=== PATIENT | female | born 1965 | race Caucasian/White ===

== ENCOUNTER 2020-03-18 07:38 | Outpatient (CLI) | payer OTHER, SELFPAY ==
--- NOTE | 2020-03-18 10:00 | NEURO_ITS ---
Patient Number: [id number] Impression: # Complains of upper extremity weakness and right elbow pain. # Right ulnar neuropathy around the elbow. # No Carpal Tunnel Syndrome. # Normal needle/EMG exam. # Clinical correlation recommended. Nerve Conduction Studies Anti Sensory Summary Table Stim Site NR Peak (ms) P-T Amp (?V) Site1 Site2 Delta-P (ms) Dist (cm) Wilberto (m/s) Left Median Anti Sensory (2-3nd Digit) Wrist 2.9 75.8 Wrist 2-3nd Digit 2.9 14.0 48 Wrist 2.7 95.7 Wrist 2-3nd Digit 2.9 14.0 48 Right Median Anti Sensory (2-3nd Digit) Wrist 2.5 77.7 Wrist 2-3nd Digit 2.5 14.0 56 Wrist 2.5 92.1 Wrist 2-3nd Digit 2.5 14.0 56 Left Radial Anti Sensory (Base 1st Digit) Wrist 1.9 29.2 Wrist Base 1st Digit 1.9 0.0 Right Radial Anti Sensory (Base 1st Digit) Wrist 2.5 33.2 Wrist Base 1st Digit 2.5 0.0 Left Ulnar Anti Sensory (5th Digit) Wrist 2.5 95.8 Wrist 5th Digit 2.5 14.0 56 Right Ulnar Anti Sensory (5th Digit) Wrist 2.3 67.0 Wrist 5th Digit 2.3 14.0 61 Motor Summary Table Stim Site NR Onset (ms) O-P Amp (mV) Site1 Site2 Delta-0 (ms) Dist (cm) Wilberto (m/s) Left Median Motor (Abd Poll Brev) Wrist 2.8 6.7 Elbow Wrist 4.9 28.0 57 Elbow 7.7 5.7 Right Median Motor (Abd Poll Brev) Wrist 3.2 4.4 Elbow Wrist 4.4 26.0 59 Elbow 7.6 2.4 Left Ulnar Motor (Abd Dig Minimi) Wrist 2.5 7.7 A Elbow Wrist 4.8 28.0 58 A Elbow 7.3 7.0 Right Ulnar Motor (Abd Dig Minimi) Wrist 2.3 6.3 A Elbow Wrist 5.0 26.0 52 A Elbow 7.3 4.7 B Elbow Wrist 3.6 20.0 56 B Elbow 5.9 4.0 F Wave Studies NR F-Lat (ms) L-R F-Lat (ms) Left Median (Mrkrs) (Abd Poll Brev) 26.69 0.84 Right Median (Mrkrs) (Abd Poll Brev) 25.85 0.84 Left Ulnar (Mrkrs) (Abd Dig Min) 25.00 0.94 Right Ulnar (Mrkrs) (Abd Dig Min) 25.94 0.94 EMG Side Muscle Nerve Root Ins Act Fibs Amp Dur Recrt Comment Right 1stDorInt Ulnar C8-T1 Nml Nml Nml Nml Nml Right Ext Indicis Radial (Post Int) C7-8 Nml Nml Nml Nml Nml Right Ext Digitorum Radial (Post Int) C7-8 Nml Nml Nml Nml Nml Right BrachioRad Radial C5-6 Nml Nml Nml Nml Nml Right PronatorTeres Median C6-7 Nml Nml Nml Nml Nml Right Abd Poll Brev Median C8-T1 Nml Nml Nml Nml Nml Left 1stDorInt Ulnar C8-T1 Nml Nml Nml Nml Nml Left Ext Indicis Radial (Post Int) C7-8 Nml Nml Nml Nml Nml Left Ext Digitorum Radial (Post Int) C7-8 Nml Nml Nml Nml Nml Left BrachioRad Radial C5-6 Nml Nml Nml Nml Nml Left PronatorTeres Median C6-7 Nml Nml Nml Nml Nml Left Abd Poll Brev Median C8-T1 Nml Nml Nml Nml Nml Right Biceps Musculocut C5-6 Nml Nml Nml Nml Nml Right Triceps Radial C6-7-8 Nml Nml Nml Nml Nml Right Deltoid Axillary C5-6 Nml Nml Nml Nml Nml Left Biceps Musculocut C5-6 Nml Nml Nml Nml Nml Left Triceps Radial C6-7-8 Nml Nml Nml Nml Nml Left Deltoid Axillary C5-6 Nml Nml Nml Nml Nml MTDD
== END 2020-03-18 07:39 | disposition home or self-care (01) ==
PROVIDERS: PCP Internal Medicine; Visit Provider Psychiatry & Neurology Neurology
DX: R53.1 Weakness (principal); G56.01 Carpal tunnel syndrome, right upper limb
CPT/HCPCS: 95886; 95911

== ENCOUNTER 2020-04-30 15:19 | Outpatient (CLI) | payer OTHER, SELFPAY ==
[2020-04-30 16:26] LABS: Urine Cotinine POSITIVE
== END 2020-04-30 15:20 | disposition home or self-care (01) ==
LOC: ANHLAB 15:21
PROVIDERS: PCP Internal Medicine; Visit Provider Internal Medicine
DX: R68.89 Other general symptoms and signs (principal); R79.89 Other specified abnormal findings of blood chemistry; E78.1 Pure hyperglyceridemia; R94.6 Abnormal results of thyroid function studies
CPT/HCPCS: 80307

== ENCOUNTER 2020-05-06 09:54 | Outpatient (CLI) | payer OTHER, SELFPAY ==
[2020-05-06 10:47] LABS: Mean Corpuscular HGB Conc 34.9 g/dl (32-36); Mean Corpuscular Hemoglobin 34.4 pg (26-34); Mean Corpuscular Volume 98.6 fl (80-100); Mean Platelet Volume 9.4 fl (7.4-10.4); Platelet Count Result 237 k/mm3 (150-375); Red Blood Count 4.36 M/mm3 (4.2-5.4); Red Cell Distribution Width 11.9 % (11.5-14.5); White Blood Count 8.7 K/mm3 (4.5-10.0)
[2020-05-06 11:00] LABS: Alanine Aminotransferase 9 U/L (4-35); Albumin Level 4.2 g/dL (3.5-5.1); Alkaline Phosphatase 72 U/L (38-126); Anion Gap 6 mmol/L (8-16); Aspartate Amino Transferase 17 U/L (14-36); Bilirubin,Total 0.3 mg/dL (0.2-1.3); Blood Urea Nitrogen 13 mg/dL (7-17); Calcium 9.6 mg/dL (8.4-10.2); Carbon Dioxide 32 mmol/L (22-30); Chloride 101 mmol/L (98-107); Estimated Glomerular Filt Rate 47; Glucose 96 mg/dL (65-105); Potassium 4.1 mmol/L (3.4-5.0); Sodium 139 mmol/L (137-145)
[2020-05-06 11:12] LABS: LDL Cholesterol Direct 95 mg/dL
== END 2020-05-06 09:55 | disposition home or self-care (01) ==
LOC: ANHLAB 09:56
PROVIDERS: PCP Internal Medicine; Visit Provider Internal Medicine
DX: R68.89 Other general symptoms and signs (principal); R79.89 Other specified abnormal findings of blood chemistry; E78.1 Pure hyperglyceridemia; R94.6 Abnormal results of thyroid function studies
CPT/HCPCS: 36415; 80053; 83721; 84443; 85027

== ENCOUNTER 2021-03-23 08:17 | Outpatient (CLI) | payer OTHER, SELFPAY ==
--- NOTE | ~2021-03-23 | US_ITS ---
US right upper quadrant INDICATION: Right upper quadrant pain and bloating PROCEDURE: Realtime right upper abdominal ultrasound. COMPARISON: No prior studies for comparison. FINDINGS: The pancreas is normal without focal mass or pancreatic ductal dilation. Liver echotexture is normal without focal mass or intrahepatic biliary dilatation. There is normal directional flow i n the portal vein. There are gallstones. No gallbladder wall thickening or pericholecystic fluid. Common bile duct jackeline ures 4 mm. No sonographic Alejo's sign. IMPRESSION: 1: Cholelithiasis. Reviewed, dictated and finalized at location A. IMPRESSION: 1: Cholelithiasis.
== END 2021-03-23 08:18 | disposition home or self-care (01) ==
LOC: ANHIMG 08:18
PROVIDERS: PCP Internal Medicine; Visit Provider Internal Medicine
DX: K80.20 Calculus of gallbladder without cholecystitis without obstruction (principal)
CPT/HCPCS: 76705

== ENCOUNTER 2021-06-20 08:38 | Outpatient (CLI) | payer OTHER, SELFPAY ==
--- NOTE | ~2021-06-20 | DEXA_ITS ---
Bone Density Report Name: Radha Del Rosario Age: 56 Sex: Female Ethnicity: White Date of : 1965 Indication: postmenopausal; Referring Provider: JORGE LUIS, JERED Study: Bone densitometry was performed. Exam Date: June 20, 2021 Accession number: [id number] Bone Density: Region BMD T-score Z-score Classification AP Spine (L1-L4) 1.102 0.5 1.7 Normal Femoral Neck (Left) 0.773 -0.7 0.5 Normal Total Hip (Left) 0.887 -0.4 0.3 Normal Total Hip Bilateral Avg 0.903 -0.3 0.5 Normal Femoral Neck (Right) 0.820 -0.3 0.9 Normal Total Hip (Right) 0.917 -0.2 0.6 Normal World Health Organization criteria for BMD impression classify patients as: Normal (T-score at or above -1.0), Osteopenia (T-score between -1.0 and -2.5), or Osteoporosis (T-score at or below -2.5). 10-year Fracture Risk: FRAX not reported because: All T-scores for Spine Total, Hip Total, Femoral Neck at or above -1.0 Clinical Information Provided by Patient: Patient maximum height was 61.5 Menopause Age: 52 No regular weight bearing exercise Drinks caffeinated beverages Onset of menses at age 15 Number of children 3 Impression: The patient has normal bone mass. Discussion: BONE DENSITY IS ABOVE THE MINIMUM DESIRABLE LEVEL AT ALL SKELETAL SITES TESTED. This patient?s bone mineral density is above the minimum desirable level (T-score -1.0 or better) at all sites measured. The patient should follow a healthful lifestyle (good nutrition with adequate calcium and vitamin D, and appropriate weight-bearing exercise). Follow-Up: Consider repeating this study in 5 years or sooner if there is some new clinical indication. Reported by: [facility] on 06/20/2021 9:19:00 AM. Reviewed, dictated and finalized at location AJosef WESTBROOK
--- NOTE | ~2021-06-20 | MM_ITS ---
EXAMINATION: MM screening [facility] BI w velma HISTORY: Screening mammogram TECHNIQUE: Craniocaudal and mediolateral oblique 3-D tomosynthesis images were obtained and synthetic 2-D images were generated. CAD analysis was submitted and interpreted. COMPARISON: 09/14/2016, 06/07/2015 BREAST PARENCHYMAL COMPOSITION: The breasts are heterogeneously dense, which may obscure small masses . FINDINGS: A cyst in the upper outer quadrant of the right breast has decreased in size. There is no e vidence of suspicious mass, calcification, or architectural distortion to suggest malignancy in eithe r breast. There has been no suspicious interval change. IMPRESSION: 1. No mammographic evidence of malignancy. 2. Recommend routine screening mammography in one year. BI-RADS Category 2: Benign finding(s). Reviewed, dictated and finalized at location A. SHER APPRENTICE
== END 2021-06-20 08:39 | disposition home or self-care (01) ==
LOC: ANHIMG 08:44
PROVIDERS: PCP Internal Medicine; Visit Provider Nurse Practitioner
DX: Z12.31 Encounter for screening mammogram for malignant neoplasm of breast (principal); M85.88 Other specified disorders of bone density and structure, other site
CPT/HCPCS: 77063; 77067; 77080

== ENCOUNTER 2021-12-19 10:12 | Outpatient (CLI) | payer OTHER, SELFPAY ==
--- NOTE | ~2021-12-19 | NM_ITS ---
EXAMINATION: NM hepatobiliary wo pharm DATE: 12/19/2021 13:18 INDICATION: Gallstones. COMPARISON: Ultrasound 03/23/2021 TECHNIQUE: 4 mCi Tc-99m mebrofenin (Choletec) was administered intravenously. Scintigraphic images o f the abdomen were obtained for one hour. Then, the patient drank 8 oz Ensure, and imaging was contin ued for 60 minutes. FINDINGS: There is normal clearance of radiotracer from the blood pool. There is homogeneous tracer u ptake by the liver. Activity progresses to the bowel and gallbladder. Gallbladder ejection fraction (GBEF) was 79%. Note that with this technique, normal GBEF >= 33%. IMPRESSION: 1. Normal hepatobiliary scintigraphy. Reviewed, dictated and finalized at location B.
== END 2021-12-19 10:13 | disposition home or self-care (01) ==
PROVIDERS: PCP Internal Medicine; Visit Provider Internal Medicine
DX: K56.3 Gallstone ileus (principal); K80.20 Calculus of gallbladder without cholecystitis without obstruction; R10.9 Unspecified abdominal pain
CPT/HCPCS: 78226; A9537

== ENCOUNTER 2022-04-13 15:09 | Outpatient (CLI) | payer OTHER, SELFPAY ==
[2022-04-13 15:33] LABS: Basophils Absolute Auto 0.1 K/mm3 (0.0-0.1); Basophils Percent Auto 0.7 % (0.2-1.2); Eosinophils Absolute Auto 0.2 K/mm3 (0-0.3); Eosinophils Percent Auto 2.4 % (0-4.4); Hematocrit 41.8 % (37.0-47.0); Hemoglobin 14.6 g/dL (12.0-15.0); Immature Granulocyte Absolute 0.03 K/mm3 (0.00-0.031); Immature Granulocyte Percent A 0.3 % (0-0.5); Lymphocytes Absolute Auto 3.11 K/mm3 (0.9-3.2); Lymphocytes Percent Auto 30.5 % (18.3-44.2); Mean Corpuscular HGB Conc 34.9 g/dl (32-36); Mean Corpuscular Hemoglobin 33.7 pg (26-34); Mean Corpuscular Volume 96.5 fl (80-100); Mean Platelet Volume 9.8 fl (7.4-10.4); Monocytes Absolute Auto 0.7 K/mm3 (0.1-0.6); Monocytes Percent Auto 7.1 % (2.6-8.5); Platelet Count Result 251 k/mm3 (150-375); Red Blood Count 4.33 M/mm3 (4.2-5.4); White Blood Count 10.2 K/mm3 (4.5-10.0)
[2022-04-13 18:47] LABS: Alanine Aminotransferase 14 U/L (6-35); Albumin Level 4.7 g/dL (3.5-5.1); Alkaline Phosphatase 85 U/L (38-126); Anion Gap 11 mmol/L (8-16); Aspartate Amino Transferase 22 U/L (14-36); Bilirubin,Total 0.3 mg/dL (0.2-1.3); Blood Urea Nitrogen 12 mg/dL (7-17); Calcium 10.2 mg/dL (8.4-10.2); Carbon Dioxide 26 mmol/L (22-30); Chloride 103 mmol/L (98-107); Cholesterol 173 mg/dL (0-200); Estimated Glomerular Filt Rate 51; Glucose 99 mg/dL (65-110); HDL Direct 51 mg/dL; LDL Cholesterol Direct 79 mg/dL; Potassium 4.2 mmol/L (3.4-5.0); Sodium 140 mmol/L (137-145); Triglycerides 114 mg/dL (<150)
[2022-04-13 20:09] LABS: Folic Acid 3.9 ng/mL (2.76->20)
[2022-04-20 10:49] LABS: Gliadin AB, IgG <1.0; TTG IGA AB <1.0
== END 2022-04-13 15:10 | disposition home or self-care (01) ==
LOC: ANHLAB 15:12
PROVIDERS: PCP Internal Medicine; Visit Provider Internal Medicine
DX: R14.0 Abdominal distension (gaseous) (principal); Z13.228 Encounter for screening for other metabolic disorders; K80.20 Calculus of gallbladder without cholecystitis without obstruction; Z86.39 Personal history of other endocrine, nutritional and metabolic disease
CPT/HCPCS: 36415; 80053; 80061; 82607; 82746; 83516; 84443; 85025; 86255

== ENCOUNTER 2022-06-14 10:20 | Outpatient (CLI) | payer OTHER, SELFPAY ==
--- NOTE | ~2022-06-14 | CT_ITS ---
EXAMINATION: CT lung screening DATE: 06/14/2022 10:35 INDICATION: Personal history of nicotine dependence, prior smoker with 30 pack year history TECHNIQUE: Computed tomography (CT) of the chest was performed without intravenous contrast. The dose -length product (DLP) was 74.17 mGy-cm. Automated exposure control and iterative reconstruction techn [employer] were employed. COMPARISON: 10/30/2007 FINDINGS: There is severe emphysema of the upper lobes. There is scarring in the right lung apex. The re are stable, chronic nodules measuring 5 mm and 2 mm in the left lower lobe. No pleural effusion or pneumothorax. No pathologically enlarged thoracic lymph nodes are identified. The heart size is norm al. Calcified right hilar lymph nodes are consistent with old granulomatous disease. There is a 2.4 c m cyst of the left hepatic lobe. Punctate calcifications in an otherwise normal spleen likely represe nt healed granulomatous disease. There is mild thoracic spondylosis. IMPRESSION: 1. Lung-RADS category 2: Benign appearance or behavior. Continue annual screening with noncontrast lo w-dose chest CT in 12 months. Reviewed, dictated and finalized at location B. RICT ASSOCIATE JUDGE IMPRESSION: 1. Lung-RADS category 2: Benign appearance or behavior. Continue annual screeni ng with noncontrast low-dose chest CT in 12 months.
== END 2022-06-14 10:21 | disposition home or self-care (01) ==
PROVIDERS: PCP Internal Medicine; Visit Provider Internal Medicine
DX: Z12.2 Encounter for screening for malignant neoplasm of respiratory organs (principal); Z87.891 Personal history of nicotine dependence
CPT/HCPCS: 71271

== ENCOUNTER 2022-09-05 13:19 | Outpatient (CLI) | payer OTHER, SELFPAY ==
--- NOTE | ~2022-09-05 | MMUS_ITS ---
EXAMINATION: MM diagnostic [facility] BI w velma, US breast LT limited HISTORY: Probable left breast lump TECHNIQUE: Additional 3-D tomosynthesis images of the breasts were performed and synthetic 2-D images were generated. CAD analysis was submitted and interpreted. High resolution Limited left breast ultr asound was performed. COMPARISON: Comparison to multiple prior studies sequentially, with oldest reviewed study dated 09/2014. BREAST PARENCHYMAL COMPOSITION: The breasts are heterogeneously dense, which may obscure small masses FINDINGS: MAMMOGRAPHIC FINDINGS: There are no suspicious masses, calcifications or architectural distortion in either breast to sugges t malignancy. ULTRASOUND: Limited left breast ultrasound: Normal heterogeneous echotexture without focal solid or cystic mass. IMPRESSION: 1. No evidence for malignancy in either breast. 2. Routine yearly screening mammogram and regular clinical breast examination are recommended. BI-RADS Category 1: Negative Reviewed, dictated and finalized at location A. YLENE CYLINDER PACKING MIXER IMPRESSION: 1. No evidence for malignancy in either breast. 2. Routine yearly screening mammogram and regular clinical breast examination a re recommended. BI-RADS Category 1: Negative
== END 2022-09-05 13:20 | disposition home or self-care (01) ==
PROVIDERS: PCP Internal Medicine; Visit Provider Obstetrics & Gynecology Gynecology
DX: N63.20 Unspecified lump in the left breast, unspecified quadrant (principal)
CPT/HCPCS: 76642; 77062; 77066; G0279

== ENCOUNTER 2022-09-22 15:00 | Outpatient (CLI) | payer OTHER, SELFPAY ==
[2022-09-24 23:40] LABS: PCP NEGATIVE ng/mL (<25)
[2022-09-26 11:28] LABS: Amphetamines Negative; Barbiturates Negative; Benzodiazepines Positive; Cocaine Metabolites Negative; Marijuana Metabolites Positive
== END 2022-09-22 15:01 | disposition home or self-care (01) ==
LOC: ANHLAB 15:02
PROVIDERS: PCP Internal Medicine; Visit Provider Nurse Practitioner
DX: F41.9 Anxiety disorder, unspecified (principal); Z79.899 Other long term (current) drug therapy
CPT/HCPCS: 80307

== ENCOUNTER 2023-08-08 07:35 | Outpatient (CLI) | payer OTHER, SELFPAY ==
--- NOTE | ~2023-08-08 | CT_ITS ---
EXAMINATION:CT lung screening DATE: 08/08/2023 14:56 INDICATION: Encounter for screening for malignant neoplasm of respiratory organs. Smoker who quit 5 y ears ago with 30 pack year history. TECHNIQUE: Computed tomography (CT) of the chest was performed without intravenous contrast. Automate d exposure control and iterative reconstruction technique were employed. The dose-length product (DLP ) was 77.73 mGy-cm. COMPARISON: Chest CT 06/14/2022 FINDINGS: There is severe emphysema. There is mild scarring at the lung apices. There is a stable 6 m m nodule in left lower lobe. Calcified right lung nodules and calcified right hilar lymph nodes are c onsistent with old granulomatous disease. There are two 3 mm nodules in left upper lobe. There is a c luster of tree-in-bud opacities in left lower lobe, likely infection. No pleural effusion. The heart size is normal. No pericardial effusion. Calcifications in the spleen are consistent with old granulo matous disease. There is a 2.7 cm cyst in the liver. There is mild thoracic spondylosis. IMPRESSION: 1. Lung-RADS category 2: Benign appearance or behavior. Continue annual screening with noncontrast lo w-dose chest CT in 12 months. Reviewed, dictated and finalized at location E. ISHER IMPRESSION: 1. Lung-RADS category 2: Benign appearance or behavior. Continue annual screeni ng with noncontrast low-dose chest CT in 12 months.
[2023-08-08 07:53] LABS: Basophils Absolute Auto 0.1 K/mm3 (0.0-0.1); Basophils Percent Auto 0.8 % (0.2-1.2); Eosinophils Absolute Auto 0.3 K/mm3 (0-0.3); Eosinophils Percent Auto 2.4 % (0-4.4); Hematocrit 43.8 % (37.0-47.0); Immature Granulocyte Absolute 0.04 K/mm3 (0.00-0.031); Immature Granulocyte Percent A 0.4 % (0-0.5); Lymphocytes Absolute Auto 2.76 K/mm3 (0.9-3.2); Lymphocytes Percent Auto 24.5 % (18.3-44.2); Mean Corpuscular HGB Conc 34.2 g/dl (32-36); Mean Corpuscular Hemoglobin 33.9 pg (26-34); Mean Corpuscular Volume 98.9 fl (80-100); Mean Platelet Volume 9.5 fl (7.4-10.4); Monocytes Absolute Auto 0.7 K/mm3 (0.1-0.6); Neutrophils Absolute Auto 7.4 K/mm3 (1.3-6.7); Neutrophils Percent Auto 65.9 % (45.5-73.1); Platelet Count Result 252 k/mm3 (150-375); Red Blood Count 4.43 M/mm3 (4.2-5.4); Red Cell Distribution Width 11.9 % (11.5-14.5); White Blood Count 11.3 K/mm3 (4.5-10.0)
[2023-08-08 08:05] LABS: Alanine Aminotransferase 20 U/L (6-35); Albumin Level 4.2 g/dL (3.5-5.1); Alkaline Phosphatase 90 U/L (38-126); Anion Gap 10 mmol/L (8-16); Aspartate Amino Transferase 22 U/L (14-36); Bilirubin,Total 0.5 mg/dL (0.2-1.3); Blood Urea Nitrogen 17 mg/dL (7-17); Calcium 9.7 mg/dL (8.4-10.2); Carbon Dioxide 27 mmol/L (22-30); Chloride 103 mmol/L (98-107); Cholesterol 205 mg/dL (0-200); Estimated Glomerular Filt Rate > 60; Glucose 119 mg/dL (65-110); HDL Direct 47 mg/dL; Sodium 140 mmol/L (137-145); Triglycerides 206 mg/dL (<150)
[2023-08-08 08:16] LABS: LDL Cholesterol Direct 103 mg/dL
[2023-08-08 09:10] LABS: Folic Acid 12.7 ng/mL (2.76->20)
[2023-08-08 09:36] LABS: Vitamin D 25 Hydroxy 39.5 ng/mL
[2023-08-10 08:56] LABS: Hemoglobin A1C 5.4 % (<5.7)
== END 2023-08-08 07:36 | disposition home or self-care (01) ==
PROVIDERS: PCP Internal Medicine; Visit Provider Nurse Practitioner
DX: Z12.2 Encounter for screening for malignant neoplasm of respiratory organs (principal); Z86.39 Personal history of other endocrine, nutritional and metabolic disease; E55.9 Vitamin D deficiency, unspecified; Z13.220 Encounter for screening for lipoid disorders; Z13.29 Encounter for screening for other suspected endocrine disorder; R73.9 Hyperglycemia, unspecified; Z87.891 Personal history of nicotine dependence
CPT/HCPCS: 36415; 71271; 80053; 80061; 82306; 82607; 82746; 83036; 85025

== ENCOUNTER 2023-08-21 11:12 | Outpatient (CLI) | payer OTHER, SELFPAY ==
--- NOTE | ~2023-08-21 | XR_ITS ---
XR chest 2V DATE: 08/21/2023 11:24 INDICATION: Shortness of breath for 3 weeks TECHNIQUE: PA and lateral views COMPARISON: 09/04/2023 CT lung screening FINDINGS: Bilateral hyperinflation and relative flattening the diaphragm, as well as evidence of some bullous change in the upper lung zones, consistent with COPD. No pulmonary infiltrate or consolidati on, pleural effusion or pulmonary vascular congestion or pneumothorax is detected. Normal heart size. No hilar or mediastinal enlargement. Degenerative changes of the lower cervical spine and to a lesser extent thoracic spine. IMPRESSION: COPD No active pulmonary disease is detected Reviewed, dictated and finalized at location L. TED STRING INSTRUMENT REPAIRER
== END 2023-08-21 11:13 | disposition home or self-care (01) ==
LOC: ANHIMG 11:15
PROVIDERS: PCP Internal Medicine; Visit Provider Nurse Practitioner
DX: R06.02 Shortness of breath (principal)
CPT/HCPCS: 71046

== ENCOUNTER 2023-09-28 14:35 | Outpatient (CLI) | payer OTHER, SELFPAY ==
--- NOTE | ~2023-09-28 | MM_ITS ---
EXAMINATION: MM screening [facility] BI w velma HISTORY: Screening TECHNIQUE: Craniocaudal and mediolateral oblique 3-D tomosynthesis images were obtained and synthetic 2-D images were generated. CAD analysis was submitted and interpreted. COMPARISON: Comparison to multiple prior studies sequentially, with oldest reviewed study dated 09/2014. BREAST PARENCHYMAL COMPOSITION: There are scattered areas of fibroglandular density. FINDINGS: There is no evidence of suspicious mass, calcification, or architectural distortion to sugg est malignancy in either breast. There has been no suspicious interval change. IMPRESSION: 1. No mammographic evidence of malignancy. 2. Recommend routine screening mammography in one year. BI-RADS Category 1: Negative Reviewed, dictated and finalized at location A. TMAN
== END 2023-09-28 14:36 | disposition home or self-care (01) ==
LOC: ANHIMG 14:38
PROVIDERS: PCP Internal Medicine; Visit Provider Advanced Practice Midwife
DX: Z12.31 Encounter for screening mammogram for malignant neoplasm of breast (principal)
CPT/HCPCS: 77063; 77067

== ENCOUNTER 2023-10-03 10:17 | Outpatient (CLI) | payer OTHER, SELFPAY ==
--- NOTE | ~2023-10-03 | US_ITS ---
EXAMINATION: US pelvic complete w TV DATE: 10/03/2023 16:03 INDICATION: Missing IUD strings TECHNIQUE: Multiple transabdominal and endovaginal sonographic images of the pelvis were obtained. COMPARISON: 09/13/2018 FINDINGS: The uterus measures 5.9 x 2.4 x 4.1 cm. An IUD is present in the uterus which appears to be in expected position. A nabothian cyst is noted in the cervix. The endometrial complex measures 6 mm . The ovaries are not visualized however no adnexal abnormality is seen. There is no free fluid in th e pelvis. IMPRESSION: 1. IUD appears to be in expected position. Reviewed, dictated and finalized at location F. D DEVELOPMENT TEACHER
== END 2023-10-03 10:18 | disposition home or self-care (01) ==
LOC: ANHIMG 10:18
PROVIDERS: PCP Internal Medicine; Visit Provider Obstetrics & Gynecology Gynecology
DX: T83.32XA Displacement of intrauterine contraceptive device, initial encounter (principal)
CPT/HCPCS: 76830; 76856

== ENCOUNTER 2024-09-05 07:29 | Outpatient (CLI) | payer OTHER, SELFPAY ==
--- NOTE | ~2024-09-05 | CT_ITS ---
EXAMINATION:CT lung screening DATE: 09/05/2024 14:46 INDICATION: Personal history of nicotine dependence. TECHNIQUE: Computed tomography (CT) of the chest was performed without intravenous contrast. Automate d exposure control and iterative reconstruction technique were employed. The dose-length product (DLP ) was 120.12 mGy-cm. COMPARISON: Chest CT 08/08/2023 FINDINGS: There is severe emphysema. There is mild scarring at the lung apices. There is a stable 7 m m nodule in left lower lobe. There is a stable 3 mm nodule in left lower lobe. Calcified right lung n odules and calcified right hilar lymph nodes are consistent with old granulomatous disease. No pleura l effusion. The heart size is normal. No pleural effusion. Calcifications in the spleen are consisten t with old granulomatous disease. There is a 2.7 cm cyst in the liver. There are gallstones in the ga llbladder, which is normal in size. There is mild thoracic spondylosis. IMPRESSION: 1. Lung-RADS category 2: Benign appearance or behavior. Continue annual screening with noncontrast lo w-dose chest CT in 12 months. Reviewed, dictated and finalized at location A. F INTERNIST OFFICE BASED ONLY IMPRESSION: 1. Lung-RADS category 2: Benign appearance or behavior. Continue annual screeni ng with noncontrast low-dose chest CT in 12 months.
--- OUTSIDE RECORDS SUMMARY | 2024-09-05 07:35 | XMS_ITS | Clinical Summary ---
Author Organization [facility] Address [address] [place] [address] Care Team Providers Care Straight Cutter Name Role Phone Shelton Gonzales MD Unavailable Unavailable Rigo Silva DO Primary Care Provider [phone] Source Comments [facility],non-owned Affiliates and Associated Physician Practices is amultiple site organization consisting of ambulatory clinics and hospital sitesin [place], [place], [place] and [place]. This disclosure is being madepursuant to the Care Everywhere program and may not contain all information available regarding this patient. Last updated 18.[facility] Allergies Active Allergy Reactions Criticality Noted Date Comments Sulfa Drugs Urticaria Medium 03/14/2022 Breaks out in blisters Medications * Be aware that medications may not be up to date on this document. Alwaysverify current medications with the patient. Medication Sig Dispensed Refills Start Date End Date Status ALPRAZolam (XANAX) 1 MG tablet 02/18/2019 Active cyanocobalamin (VITAMIN B-12) injection INJ 1 ML IM ONCE A MONTH 01/20/2020 Active B-D 3CC LUER-MARTHA SYR 25GX5/8 25G X 5/8 3 ML MISC USE DIRECTED WITH VITAMIN B12 INJECTION 05/04/2020 Active neomycin-polymyxin -dexameth (MAXITROL) ophthalmic ointment Instill into both eyes at bedtime 3.5 g 05/19/2020 Active Additional Information Patient not taking.Reported on 03/14/2022 Cyanocobalamin (Vitamin B12) 100 MCG Take by mouth once daily Active linaCLOtide (Linzess) 145 MCG capsuleIndications :Constipation associated with Irritable Bowel Syndrome Take 1 (one) capsule by mouth daily before breakfast Take on an empty stomach at least 30 minutes prior to first meal of the day. 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 Family History Medical History Relation Name Comments CAD (Coronary Artery Disease) Father Glaucoma Father COPD - Chronic Obstructive Pulmonary Disease Mother Relation Name Status Comments Father Mother Social History Tobacco Use Types Packs/Day Years Used Date Smoking Tobacco: Former Smokeless Tobacco: Never Alcohol Use Standard Drinks/Week Comments Yes 0 (1 standard drink = 0.6 oz pur e alcohol) occasionally Sex and Gender Information Value Date Recorded Sex Assigned at Not on file Gender Identity Not on file Sexual Orientation Not on file Last Filed Vital Signs Vital Sign Reading Time Taken Comments Blood Pressure 110/76 03/14/2022 12:56 PM CDT Pulse - - Temperature - - Respiratory Rate - - Oxygen Saturation - - Inhaled Oxygen Concentration - - Weight 60.3 kg (133 lb) 03/14/2022 12:56 PM CDT Height 157.5 cm (5' 2 ) 03/14/2022 12:56 PM CDT Body Mass Index 24.33 03/14/2022 12:56 PM CDT Plan of Treatment Health Maintenance Due Date Last Done Comments COLOGUARD (AGES 45-75) - COL ON CA SCREENING 1965 COLON MONITORING 1965 COLONOSCOPY - COLON CA SCREENING 1964 CT COLONOGRAPHY - COLON CA SCREENING 1965 Colorectal Cancer Screening 1965 FIT - COLON CA SCREENING 1965 FLEX SIG - COLON CA SCREENING 1965 LIPID TESTING 1965 MAMMOGRAM 1965 PAP SMEAR 1964 HIV SCREENING 1979 HEPATITIS C SCREENING 06/15/1982 DTAP/TDAP/TD VACCINES (1 - Tdap) 1983 PNEUMOCOCCAL VACCINE 50+ (1 of 1 - PCV) 2014 ZOSTER VACCINE (1 of 2) 2014 COVID-19 VACCINE (1 - 2023-2 5 season) 2024 INFLUENZA VACCINE (#1) 2024 DEPRESSION SCREENING 08/06/2024 Respiratory Syncytial Virus (RSV) Vaccine Pt: or over 60 yrs (1 - 1-dose 75+ series) 2039 HEPATITIS B VACCINE Aged Out No longe r eligible based on patient's age to complete this topic HIB VACCINE Aged Out No longer eligi ble based on patient's age to complete this topic HPV VACCINE Aged Out No longer eligi ble based on patient's age to complete this topic MENINGOCOCCAL (Group B) VACCINE Aged Out No longer eligible based on patient's age to complete this topic MENINGOCOCCAL VACCINE Aged Out No hussein colton eligible based on patient's age to complete this topic PNEUMOCOCCAL VACCINE Aged Out No long er eligible based on patient's age to complete this topic Care Teams Straight Cutter Relationship Specialty Start Date End Date Rigo Silva DO PCP - General Internal Medicine 04/14/22 Shelton Gonzales MD Family Medicine Physician Internal Medicine 05/24/20
--- OUTSIDE RECORDS SUMMARY | 2024-09-05 07:35 | XMS_ITS | Referral Summary ---
Author Organization [facility] Address [address] [place] [address] Care Team Providers Care Register Clerk Name Role Phone Shelton Gonzales MD Unavailable Unavailable Rigo Silva DO Primary Care Provider [phone]- [phone] Source Comments [facility],non-owned Affiliates and Associated Physician Practices is amultiple site organization consisting of ambulatory clinics and hospital sitesin [place], [place], [place] and [place]. This disclosure is being madepursuant to the Care Everywhere program and may not contain all information available regarding this patient. 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
--- OUTSIDE RECORDS SUMMARY | 2024-09-05 07:35 | XMS_ITS | Patient Health Summary ---
Author Organization [facility] Address [address] [place] [address] Care Team Providers Care Whirley Operator Name Role Phone Shelton Gonzales MD Unavailable Unavailable Rigo Silva DO Primary Care Provider [phone] Note from [facility],non-owned Affiliates and Associated Physician Practices is amultiple site organization consisting of ambulatory clinics and hospital sitesin [place], [place], [place] and [place]. This disclosure is being madepursuant to the Care Everywhere program and may not contain all information available regarding this patient. Last updated 18.[facility] Allergies * Sulfa Drugs(Urticaria) -Medium Criticality Medications * Be aware that medications may not be up to date on this document. Alwaysverify current medications with the patient. * ALPRAZolam (XANAX) 1 MG tablet(Started 02/18/2019) * cyanocobalamin (VITAMIN B-12) injection(Started 01/20/2020) INJ 1 ML IM ONCE A MONTH * B-D 3CC LUER-MARTHA SYR 25GX5/8 25G X 5/8 3 ML MISC(Started 05/04/2020) USE DIRECTED WITH VITAMIN B12 INJECTION * wgnpsntr-uuuljlwgv-njzxbznn (MAXITROL) ophthalmic ointment(Started 05/19/2020) Instill into both eyes at bedtime * Cyanocobalamin (Vitamin B12) 100 MCG Take by mouth once daily * linaCLOtide (Linzess) 145 MCG capsule(Started 03/14/2022) Take 1 (one) capsule by mouth daily before breakfast Take on an empty stomach at least 30 minutes prior to first meal of the day. Reasons: Constipation caused by Irritable Bowel Syndrome Active Problems Problem Noted Date Diagnosed Date [...] Mass Index 24.33 03/14/2022 12:56 PM CDT Procedures * EYE EXAM(Performed 01/21/2020) Results * EYE EXAM (01/21/2020 7:55 AM CDT) Anatomical Region Laterality Modality Other Narrative 01/21/2020 7:55 AM CDT Ordered by an unspecified provider. Scanned Document SCANNING ONLY Care Teams Whirley Operator Relationship Specialty Start Date End Date Rigo Silva DO PCP - General Internal Medicine 04/14/22 Shelton Gonzales MD Family Medicine Physician Internal Medicine 05/24/20
--- OUTSIDE RECORDS SUMMARY | 2024-09-05 07:36 | XMS_ITS | Data Portability ---
[facility] Organization [facility] Address [address] [place] [address] Assessment Encounter Date Assessment Date Assessment LastModified by Organization Details LastModified Time 10/02/2023 10/02/2023 Labs are UTD with last PCP office in august. mammogram last week with dr. duenas office, all normal. bone density due in february colonoscopy is reported UTD Not available 10/07/2023 20:26:06 03/31/2024 03/31/2024 Labs are UTD with last PCP office in august. mammogram last week with dr. duenas office, all normal. bone density due in february colonoscopy is reported UTD Not available 03/31/2024 15:03:44 Plan of Treatment Reminders Order Date Submit Date Provider Last Modified By Organization Details Last Modified Time Details Appointments ANY 15 2024 01:00P M JONAS Bradley Not available Not available Not available Lab TSH + free T4, serum [address] [facility], [address] [place] [address], [id number], 08/07/2024 09:03:15 insulin, serum [address] [facility], [facility] [address], [address], 08/07/2024 09:03:15 lipid panel, serum [address] [facility], [facility] [address], [address], 08/07/2024 09:03:15 CMP, serum or plasma [address] [facility], [address] [place] [address] [place] [address], [id number], 08/07/2024 09:03:15 CBC w/ auto diff [address] [facility], [address] [place] [address], [id number], 08/07/2024 09:03:15 vitamin B12 + folate, serum or blood [address] [facility], [address] [place] [address], [id number], 08/07/2024 09:03:15 HbA1c (hemoglo bin A1c), blood [address] [facility], [address] [place] [address], [id number], 08/07/2024 09:03:15 Referral None recorded . Procedures None recorded . Surgeries None recorded . Imaging LDCT, chest, for lung cancer screenin g - Authoriz ation not required No pre-cert ificatio n is required for this order 2023 024 [facility] (Imaging), [address] [place] [address] [place] [address], [id number], 08/29/2024 16:14:07 Medication Orders doxycycl ine hyclate 100 mg capsule 2023 024 [facility]/Pharmacy #[id number], [address], [place], [address], 03/31/2024 14:36:27 alprazol am 1 mg tablet 2023 024 [facility]/Pharmacy #[id number], [address], [place], [address], 10/02/2023 15:56:45 alprazol am 1 mg tablet 2023 024 [facility]/Pharmacy #[id number], [address], [place], [address], 03/31/2024 15:08:09 Patient TargetsNo targets recorded. Patient InstructionsNo instructions recorded. Reason for Referral None Reported. Results Created Date Observation Date Name Description Value Unit Range Abnormal Flag Note LastModifiedBy Organization Detail LastModifiedTime 04/02/20 24 08/08/2023 MAMMO , scree manfred, digit al, bilat eral No observ ation record ed. [email or web address] [facility] [address], [place], [address], 04/06/2024 20:18:17 Result Notes None recorded. Problems Name Problem SNOMED Code Status Onset Date Resolution Date Notes Provider Name and Address Organization Details Recorded Time Body mass index 25-29 - overweight 261346097 Active 2023 JONAS Bradley Attn: Sonny pastrana,[address] [place], [address], [facility] 4 20:18:37 Ex-smoker 4261778 Active 2023 JONAS Bradley Attn: Sonny pastrana,[address] [place], [address], [facility] 4 20:18:56 Generalized anxiety disorder 57795830 Active 2023 JONAS Bradley Attn: Sonny pastrana,[address] [place], [address], [facility] 4 20:19:31 Vitamin B12 deficiency (non anemic) 27134506 Active 2023 JONAS Bradley Attn: Sonny g,[address] [place], [address], [facility] 4 20:19:32 Cholesterol screening Active 2023 JONAS Bradley Attn: Sonny g,[address] [place], [address], [facility] 20:19:34 Problem Notes None recorded. Procedures Surgical History Date Name Laterality Status Provider Name and Address Organization Details Recorded Time section completed Jaxon Zamorano [place] [facility] 10/02/2023 15:40:09 Imaging Results Imaging Date Name Status LastModified by Organiz ation Details LastModified Time 08/08/2023 MAMMO, screening, digital, bilateral completed [email or web address] [facility] [address], [place], [address], 04/06/2024 20:18:17 Procedure Notes None recorded. Medical Equipment None Reported. Allergies Allergen ID Allergen Name Allergen Category Reaction Reaction Severity Criticality Documentation Date Start Date Code Code System Note Provider Name and Address Organization Details Recorded Time [id number] Substance with sulfonami de structure and antibacte rial mechanism of action (substanc e) medicatio n Not available Not available Not available 10/02/2023 [id number] SNOMED Not Available Not Available Not Available Medications Name Sig Start Date Stop Date Status Note LastModified by Organization Details LastModified Time venlafaxin e ER 37.5 mg capsule,ex tended release 24 hr TAKE 1 CAPSULE BY MOUTH EVERY EVENING 10/02 completed Not Available Not Available Not Available prednisone 10 mg tablet TAKE 1 TABLET BY MOUTH TWICE A DAY 10/02 completed Not Available Not Available Not Available doxycyclin e hyclate 100 mg capsule TAKE 1 CAPSULE TWICE A DAY BY ORAL ROUTE WITH MEAL(S). 03/31 completed Not Available Not Available Not Available azithromyc in 250 mg tablet TAKE 2 TABLETS BY MOUTH TODAY, THEN TAKE 1 TABLET DAILY FOR 4 DAYS DIRECTED 10/02 completed Not Available Not Available Not Available alprazolam 1 mg tablet TAKE 1 TABLET BY MOUTH EVERYDAY AT BEDTIME 2024 active Not Available Not Available Not Avai lable ondansetro n HCl 4 mg tablet TAKE 1 TABLET BY MOUTH TWICE DAILY NEEDED FOR NAUSEA AND VOMITING 10/02 completed Not Available Not Available Not Available cyanocobal antoine (vit B-12) 1,000 mcg tablet TAKE 1 TABLET BY MOUTH EVERY DAY active Not Available Not Available No t Available alprazolam 0.5 mg tablet TAKE 2 TABLETS BY MOUTH DAILY NEEDED FOR ANXIETY 10/02 completed Not Available Not Available Not Available albuterol sulfate HFA 90 mcg/actuat ion aerosol inhaler 10/02 completed pt. states that she Not Available Not Available Not Available Vitals Date Recorded Body weight Provider Name an d Address Organization Details Last Updated DateTime 10/02/2023 47830.04 g Jaxon Zamorano MA [facility] 2023 15:31:12 Date Recorded Heart rate Provider Name an d Address Organization Details Last Updated DateTime 10/02/2023 86 /min Jaxon Zamorano MA [facility] 2023 15:31:22 Date Recorded Respiratory rate Provider Name a nd Address Organization Details Last Updated DateTime 10/02/2023 18 /min Jaxon Zamorano MA [facility] 10/02/2023 15:31:24 Date Recorded Body temperature Provider Name a nd Address Organization Details Last Updated DateTime 10/02/2023 99.2 [degF] Jaxon Zamorano MA [facility] 10/02/2023 15:31:28 Date Recorded Oxygen saturation Oxygen saturation in Arterial blood by Pulse oximetry Provider Name and Address Organization Details Last Updated DateTime 10/02/2023 95 % 95 % Jaxon Zamorano MA [facility] 10/02/2023 15:31:34 Date Recorded Body mass index (BMI) Body height Provider Name and Address Organization Details Last Updated DateTime 10/02/2023 25.1 kg/m2 165.74 cm Jaxon Zamorano MA [facility] 10/02/2023 15:31:43 Date Recorded Body height Provider Name an d Address Organization Details Last Updated DateTime 03/31/2024 165.74 cm Kwadwo Aviles MA [facility] 03/31/2024 14:36:54 Date Recorded Body mass index (BMI) Body weight Provider Name and Address Organization Details Last Updated DateTime 03/31/2024 26.9 kg/m2 95741.56 g Kwadwo Aviles MA [facility] 03/31/2024 14:37:00 Date Recorded Oxygen saturation Oxygen saturation in Arterial blood by Pulse oximetry Provider Name and Address Organization Details Last Updated DateTime 03/31/2024 97 % 97 % Kwadwo Aviles MA [facility] 03/31/2024 14:37:25 Date Recorded Heart rate Provider Name an d Address Organization Details Last Updated DateTime 03/31/2024 90 /min Kwadwo henderson [facility] 03/31/2024 14:37:31 Date Recorded Systolic blood pressure Diastolic blood pressure Provider Name and Address Organization Details Last Updated DateTime 10/02/2023 119 mm[Hg] 80 mm[Hg] Jaxon Zamorano MA [facility] 10/02/2023 15:31:18 Date Recorded Systolic blood pressure Diastolic blood pressure Provider Name and Address Organization Details Last Updated DateTime 10/02/2023 126 mm[Hg] 80 mm[Hg] JONAS Bradley Attn: Accounting,[address] [place], [address], [facility] 10/02/2023 16:07:05 Date Recorded Systolic blood pressure Diastolic blood pressure Provider Name and Address Organization Details Last Updated DateTime 03/31/2024 130 mm[Hg] 86 mm[Hg] Kwadwo Aviles MA [facility] 03/31/2024 14:38:39 Date Recorded Systolic blood pressure Diastolic blood pressure Provider Name and Address Organization Details Last Updated DateTime 03/31/2024 140 mm[Hg] 80 mm[Hg] JONAS Bradley Attn: Accounting,[address] [place], [address], [facility] 03/31/2024 15:03:55 Date Recorded Systolic blood pressure Diastolic blood pressure Provider Name and Address Organization Details Last Updated DateTime 03/31/2024 130 mm[Hg] 80 mm[Hg] JONAS Bradley Attn: Accounting,[address] [place], [address], [facility] 03/31/2024 15:10:11 Social History Question Answer Notes LastModified by Organizat ion Details LastModified Time Tobacco Smoking Status Former Smoker quit Jaxon Zamorano MA null, [facility] 10/02/2023 15:35:35 What Is Your Level Of Alcohol Consumption? None Information not available 10/02/2023 What Is Your Level Of Caffeine Consumption? Occasional Cofee In The Morninfg And Tea Information not available 10/02/2023 In The 14 Days Before Symptom Onset, Have You Had Close Contact With A Laboratory-confi rmed COVID-19 While That Case Was Ill? No Information not available 10/02/2023 In The 14 Days Before Symptom Onset, Have You Had Close Contact With A Person Who Is Under Investigation For COVID-19 While That Person Was Ill? No Information not available 10/02/2023 Have You Been To An Area Known To Be High Risk For COVID-19? No Information not available 10/02/2023 Are There Any Guns Present In Your Home? No Information not available 10/02/2023 What Was The Date Of Your Most Recent Tobacco Screening? 03/31/2024 [email or web address] Information not available 03/31/2024 What Is Your Current Pack Years? 30ormorepacky ears Information not available 10/02/2023 Do You Use Your Seat Belt Or Car Seat Routinely? Yes Information not available 10/02/2023 Do You Have Smoke And Carbon Monoxide Detectors In Your Home? Yes Information not available 10/02/2023 Do You Use Any Illicit Or Recreational Drugs? No Information not available 10/02/2023 Do You Use Sunscreen Routinely? Yes Information not available 10/02/2023 Has Tobacco Cessation Counseling Been Provided? Yes Information not available 10/02/2023 On What Date Was Tobacco Cessation Counseling Provided? 10/02/2023 Information not available 10/02/2023 How Many Years Have You Smoked Tobacco? 38 Information not available 10/02/2023 Do You Or Have You Ever Used Any Other Forms Of Tobacco Or Nicotine? No Information not available 10/02/2023 Sex: Unknown Functional Status None recorded. Mental Status None recorded. Family History Relationship Description Onset Age of this Age Resolved Age Notes LastModified by Organization Details LastModified Time Father Abnormal blood pressure [email or web address] Not available 2023 15:36:44 Sister Asthma [email or web address] Not available 10/02/2023 15:40:46 Sister Malignant tumor of breast [email or web address] Not available 2023 15:40:59 Notes:High blood pressure- D ad Medical History Condition Response Coronary Artery Disease N Other N Atrial Fibrillation N High Blood Pressure N Kidney or Bladder Problems Y Thyroid Problems N COPD N Blood Clots N GI Problems N Skin Problems N Heart Attack ([place]) N Diabetes N Anxiety Disorder Y Muscle, Joint, or Bone Problems N Seizures/Epilepsy N Acid Reflux (GERD) N Cancer N Stroke N Asthma N Allergies Y High Cholesterol N Hepatitis N Liver Disease N Headaches N Heart Failure N Osteoporosis N Gynecological History Statement/Question Response Menses Monthly N Current Control Method IUD On BCP's at Conception? N Obstetrics History GPAL:G 3 P 0 0 0 3 Type Value Multiple Births 0 Full Term 0 Induced 0 Spontaneous 0 Premature 0 Living 3 Ectopics 0 Total 3 Past Encounters Encounter ID Performer Location Encounter Start Date Encounter Closed Date Diagnosis/Indication Diagnosis SNOMED-CT Code Diagnosis ICD10 Code Diagnosis Note [id number] JONAS Bradley [facility] [address] [place] [address] 10/02/2023 15:24:22 10/02/2023 16:16:08 Adult health examination 808203172 Z00.01 new pt wellness completed. Generalize d anxiety disorder 71598633 F41.1 pt has been on alprazolam 1mg qhs , fdc use. 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 she has tried and failed SSRI and SNRI as other options prior. Vitamin B1 2 deficiency (non anemic) 73288526 E53.8 pt is taking b12: 1000mcg daily tablet. Long-term drug therapy 728612774 Z79.899 labs were recently completed with previous PCP Swelling o f finger joint 649453911 M79.89 right index finger had an episode of acute swelling and discomfort , with no injury or precipitai ng cause. the swelling has nearly resolved. motion of the finger is near baseline. no gross infection present but will start empiric 100mg bid course. 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 she has tried and failed SSRI and SNRI as other options prior. Refill needed on alprazolam 1 mg Vitamin B1 2 deficiency (non anemic) 23749091 E53.8 pt is taking b12: 1000mcg daily tablet. We will monitor vitamin B12 and folate on the next labs Long-term drug therapy 417081897 Z79.899 labs were recently completed with previous PCP and due in August 2024 Cholesterol screening 27 5243983 Z13.220 Fasting lipid panel is due again in August Diabetes m ellitus screening 605951054 Z13.1 Annual diabetes screen is ordered for August Weight gain 9306284 R63. 5 For reported weight gain we will check a thyroid function panel and fasting insulin Ex-smoker 0429786 Z87.89 1 Patient will be due for annual low-dose CT of the chest in August order is given now Body mass index 25-29 - overweight 382832950 Z68.26 BMI is 26.9 Health Concerns Section Related Observation LastModified by Organization Detai ls LastModified Time None Recorded Concern Status LastModified by Organization Details LastModified Time None Recorded Advance Directives Directive None Recorded Payers Encounter Date Sequence Insurance Name Policy Number Policy Wilson Covered Member ID Wilson Member ID Guarantor Name 10/02/2023 1 [facility] [id number] Radha Del Rosario [id number] Radha Del Rosario 03/31/2024 1 [facility] [id number] Radha Del Rosario [id number] Radha Del Rosario Notes Date Note Type Note Provider Name and Address Organization Details Recorded Time 10/02/2023 text/html Anxiety/Depressi o nReported bypatient.Notes:a nxiety for years. takes alprazolam 1mg qhs. has tried and failed SSRI and SNRI getting established. JONAS Bradley Attn: Accounting,[address] [place], [address], [facility] 10/07/2023 20:36:08 03/31/2024 text/html Anxiety/Depressi o nReported bypatient.Notes:a nxiety for years. takes alprazolam 1mg qhs. has tried and failed SSRI and SNRI Ex-smoker patient will be in need of updated low-dose CT scan order B12 deficiency-patien t is taking monthly B12 injections and is stable. Patient reports weight gain recently despite any major dietary changes. She does feel that she has some room to improve the diet but she is interested in labs JONAS Bradley Attn: Accounting,[address] [facility], [place], [address], [facility] 04/06/2024 20:20:44 OBGyn Episode No OBEpisode recorded.
[2024-09-05 07:55] LABS: Basophils Absolute Auto 0.1 K/mm3 (0.0-0.1); Eosinophils Absolute Auto 0.2 K/mm3 (0-0.3); Eosinophils Percent Auto 2.8 % (0-4.4); Hemoglobin 14.4 g/dL (12.0-15.0); Immature Granulocyte Absolute 0.02 K/mm3 (0.00-0.031); Immature Granulocyte Percent A 0.2 % (0-0.5); Lymphocytes Absolute Auto 2.73 K/mm3 (0.9-3.2); Lymphocytes Percent Auto 32.7 % (18.3-44.2); Mean Corpuscular HGB Conc 33.5 g/dl (32-36); Mean Corpuscular Hemoglobin 32.6 pg (26-34); Mean Corpuscular Volume 97.3 fl (80-100); Mean Platelet Volume 9.7 fl (7.4-10.4); Monocytes Absolute Auto 0.6 K/mm3 (0.1-0.6); Monocytes Percent Auto 7.3 % (2.6-8.5); Neutrophils Absolute Auto 4.7 K/mm3 (1.3-6.7); Platelet Count Result 247 k/mm3 (150-375); Red Blood Count 4.42 M/mm3 (4.2-5.4); Red Cell Distribution Width 11.9 % (11.5-14.5); White Blood Count 8.4 K/mm3 (4.5-10.0)
[2024-09-05 08:09] LABS: Hemoglobin A1C 5.7 % (<5.7)
[2024-09-05 08:13] LABS: Alanine Aminotransferase 18 U/L (6-35); Albumin Level 4.5 g/dL (3.5-5.1); Alkaline Phosphatase 88 U/L (38-126); Anion Gap 11 mmol/L (4-12); Aspartate Amino Transferase 22 U/L (14-36); Bilirubin,Total 0.4 mg/dL (0.2-1.3); Blood Urea Nitrogen 23 mg/dL (7-17); Calcium 9.6 mg/dL (8.4-10.2); Carbon Dioxide 25 mmol/L (22-30); Chloride 104 mmol/L (98-107); Cholesterol 178 mg/dL (0-200); Estimated Glomerular Filt Rate 54; Glucose 106 mg/dL (65-110); HDL Direct 51 mg/dL; Potassium 4.6 mmol/L (3.4-5.0); Sodium 140 mmol/L (137-145); Triglycerides 157 mg/dL (<150)
[2024-09-05 08:24] LABS: LDL Cholesterol Direct 90 mg/dL
[2024-09-05 08:29] LABS: Free T4 Free Thyroxine 1.13 ng/dL (0.78-2.19)
[2024-09-05 09:20] LABS: Folic Acid 5.6 ng/mL (2.76->20)
== END 2024-09-05 07:30 | disposition home or self-care (01) ==
PROVIDERS: PCP Physician Assistant; Visit Provider Physician Assistant
DX: Z12.2 Encounter for screening for malignant neoplasm of respiratory organs (principal); Z87.891 Personal history of nicotine dependence
CPT/HCPCS: 36415; 71271; 80053; 80061; 82607; 82746; 83036; 83525; 84439; 84443; 85025

== ENCOUNTER 2024-10-30 14:49 | Outpatient (CLI) | payer OTHER, SELFPAY ==
--- NOTE | ~2024-10-30 | US_ITS ---
EXAMINATION: US pelvic complete w TV INDICATION: Abdominal bloating Comparison:Ultrasound dated 10/03/2023 TECHNIQUE: Multiple transabdominal and endovaginal sonographic images of the pelvis performed. FINDINGS: The uterus measures 6.6 x 2.3 x 2.6 cm. There is a 8 mm nabothian cysts. The endometrial co mplex is not delineated for evaluation.. Ovaries are not visualized. There is no free fluid in the pelvis. There are no abnormal masses seen on either side. IMPRESSION: 1. Unremarkable pelvic ultrasound. Reviewed, dictated and finalized at location A.
--- OUTSIDE RECORDS SUMMARY | 2024-10-30 15:43 | XMS_ITS | Clinical Summary ---
Author Organization [facility] Address [address] [place] [address] Care Team Providers Care Marine Insulator Name Role Phone Shelton Gonzales MD Unavailable Unavailable Rigo Silva DO Primary Care Provider [phone] Source Comments [facility],non-owned Affiliates and Associated Physician Practices is amultiple site organization consisting of ambulatory clinics and hospital sitesin [place], [place], [place] and [place]. This disclosure is being madepursuant to the Care Everywhere program and may not contain all information available regarding this patient. Last updated 18.[facility] Allergies Active Allergy Reactions Criticality [...] to complete this topic MENINGOCOCCAL (Group B) VACC INE SHARED DECISION-MAKING Aged Out No longer eligibl e based on patient's age to complete this topic MENINGOCOCCAL GROUPS A/C/Y/W VACCINE Aged Out No longer eligible b ased on patient's age to complete this topic Care Teams Marine Insulator Relationship Specialty Start Date End Date Rigo Silva DO PCP - General Internal Medicine 04/14/22 Shelton Gonzales MD Family Medicine Physician Internal Medicine 05/24/20
--- OUTSIDE RECORDS SUMMARY | 2024-10-30 15:43 | XMS_ITS | Data Portability ---
Author Organization [facility] Agnes Peterson Address [address] [place] [address] Care Team Providers Care Experimental Machinist Name Role Phone JAMIE DUARTE Primary Care Provider Unavailab le Assessment Encounter Date Assessment Date Assessment LastModified [...] is reported UTD Not available 03/31/2024 15:03:44 09/29/2024 09/29/2024 pap smear UTD aug 2023. Now with dr. rollins. Not due for pap yet. Mammogram aug 2023. Next not until december 2024. Not available 09/29/2024 14:31:23 Plan of Treatment Reminders Order Date Submit Date Provider Last Modified By Organization Details Last Modified Time Details Appointments ANY 15 2024 01:00P M JONAS Bradley Not available Not available Not available Lab TSH + free T4, serum [address] [facility], [facility], [address], 09/29/2024 18:05:35 insulin, serum 2023 025 [facility], [address] [place] [address], [id number], 08/07/2024 09:03:15 lipid panel, serum [address] [facility], [address] [place] [address], [id number], 09/29/2024 18:06:24 CMP, serum or plasma [address] [facility], [address] [place] [address], [id number], 09/29/2024 18:05:56 CBC w/ auto diff [address] [facility], [address] [place] [address], [id number], 09/29/2024 18:06:02 vitamin B12 + folate, serum or blood 2023 025 [facility], [address] [place] [address], [id number], 08/07/2024 09:03:15 HbA1c (hemoglob in A1c), blood [address] [place] [address] Lab, [address] [place] [address], [id number], 09/29/2024 18:04:51 Referral None recorded. Procedures None recorded. Surgeries None recorded. Imaging US, abdomen [address] [place] [address] (Imaging), [address] [place] [address], [id number], 10/28/2024 04:31:38 US, pelvis, transabdo jimmy + transvagi nal [address] [place] [address] (Imaging), [address] [place] [address], [id number], 10/28/2024 04:31:38 LDCT, chest, for lung cancer screening - Authoriza tion not requiredN o pre-certi fication is required for this order 2023 024 [facility] ([facility] [address], [place], [address], 09/06/2024 11:53:40 Medication Orders alprazola m 1 mg tablet 2023 tcarterma [facility]armacy #[id number], [address], [place], [address], 09/29/2024 14:01:30 doxycycli ne hyclate 100 mg capsule 2023 024 [facility]/Pharmacy #[id number], [address], [place], [address], 03/31/2024 14:36:27 alprazola m 1 mg tablet 2023 024 [id number], [address], [place], [address], 10/02/2023 15:56:45 Patient TargetsNo targets recorded. Patient Instructions Encounter Date Encounter Id Patient Instructions Last Modified By Organization Details Last Modified Time 09/29/2024 [id number] A healthy lifestyle: care instructions [facility]5 Not available 09/29/2024 14:19:41 Reason for Referral None Reported. Results Created Date Observation Date Name Description Value Unit Range Abnormal Flag Note LastModifiedBy Organization Detail LastModifiedTime 04/02/2008/08/2023 MAMMO , roshnie manfred, digit al, bilat eral No observ ation record ed. [facility] [address] [facility] [address], [place], [address], 04/06/2024 20:18:17 09/06/19 25 09/05/2024 LDCT, chest , for lung cance r simone shearer No observ ation record ed. [facility] [address] [facility] [address], [place], [address], 09/29/2024 14:18:57 Result Notes None recorded. Problems Name Problem SNOMED Code Status Onset Date Resolution Date Notes Provider Name and Address Organization Details Recorded Time Body mass index 25-29 - overweight 212441979 Active 2023 JONAS Bradley Attn: Sonny pastrana,[address] [facility], [place], [address], [place] [facility] 4 20:18:37 Ex-smoker 5083912 Active 2023 JONAS Bradley Attn: Sonny g,[address] [facility], [place], [address], [place] [facility] 4 20:18:56 Generalized anxiety disorder 66613205 Active 2023 JONAS Bradley Attn: Sonny pastrana,[address] [facility], [place], [address], [place] [facility] 4 20:19:31 Vitamin B12 deficiency (non anemic) 53665260 Active 2023 JONAS Bradley Attn: Sonny pastrana,[address] [facility], [place], [address], [place] [facility] 4 20:19:32 Cholesterol screening Active 2023 JONAS Bradley Attn: Sonny pastrana,[address] [facility], [place], [address], [place] [facility] 4 20:19:34 Overweight 927023746 Active 2024 JONAS Bradley Attn: Sonny g,[address] [facility], [place], [address], [place] [facility] 5 14:19:35 Pulmonary emphysema 64005143 Active 2024 JONAS Bradley Attn: Sonny pastrana,[address] [facility], [place], [address], [place] [facility] 5 14:29:02 Abdominal bloating 879961801 Active 2024 JONAS Bradley Attn: Sonny pastrana,[address], [place], [address], [facility] 23:08:44 Long-term drug therapy Active 2024 JONAS Bradley Attn: Sonny pastrana,[address], [place], [address], [facility] - [facility] 23:09:01 Problem Notes None recorded. Procedures Surgical History Date Name Laterality Status Provider Name and Address Organization Details Recorded Time section completed Jaxon Zamorano [place] 10/02/2023 15:40:09 Imaging Results Imaging Date Name Status LastModified by [facility] Details LastModified Time 08/08/2023 MAMMO, screening, digital, bilateral completed [address], [address], 04/06/2024 20:18:17 09/05/2024 LDCT, chest, for lung cancer screening completed [address], [address], 09/29/2024 14:18:57 Procedure Notes None recorded. Medical Equipment None Reported. Allergies Allergen ID Allergen Name Allergen Category Reaction Reaction Severity Criticality Documentation Date Start Date Code Code System Note Provider Name and Address Organization Details Recorded Time 709245 Substance with sulfonami de structure and antibacte rial mechanism of action (substanc e) medicatio n Not available Not available Not available 10/02/2023 99517 8003 SNOMED Not Available Not Available Not [...] cyanocobal antoine (vit B-12) 1,000 mcg tablet Take 1 tablet by oral route for 30 days. 09/29 completed Not Available Not Available Not Available alprazolam 0.5 mg tablet TAKE 2 TABLETS BY MOUTH DAILY NEEDED FOR ANXIETY 10/02 completed Not Available Not Available Not Available albuterol sulfate HFA 90 mcg/actuat ion aerosol inhaler 10/02 completed pt. states that she Not Available Not Available Not Available Vitals Date Recorded Body weight Heart rate Respiratory rate Body temperature Oxygen saturation Oxygen saturation in Arterial blood by Pulse oximetry Body mass index (BMI) Body height Systolic blood pressure Diastolic blood pressure Provider Name and Address Organization Details Last Updated DateTime 4 [address].0 4 g 86 /min 18 /min 99.2 [degF] 95 % 95 % 25.1 kg/m2 165.74 cm 119 mm[Hg] 80 mm[Hg] Jaxon Zamorano MA [facility] 4 15:31:18 Date Recorded Systolic blood pressure Diastolic blood pressure Provider Name and Address Organization Details Last Updated DateTime 10/02/2023 126 mm[Hg] 80 mm[Hg] JONAS Bradley Attn: Accounting,[address] [place], [address], [facility] 10/02/2023 16:07:05 Date Recorded Body height Body mass index (BMI) Body weight Oxygen saturation Oxygen saturation in Arterial blood by Pulse oximetry Heart rate Systolic blood pressure Diastolic blood pressure Provider Name and Address Organization Details Last Updated DateTime 4 165.74 cm 26.9 kg/m2 46198.5 6 g 97 % 97 % 90 /min 130 mm[Hg] 86 mm[Hg] Kwadwo Aviles MA [facility] 4 14:38:39 Date Recorded Systolic blood pressure Diastolic blood pressure Systolic blood pressure Diastolic blood pressure Provider Name and Address Organization Details Last Updated DateTime 03/31/2024 140 mm[Hg] 80 mm[Hg] 130 mm[Hg] 80 mm[Hg] JONAS Bradley Attn: Accounting ,[address] [place], [address] , [place] - [place] 4 15:10:11 Date Recorded Body height Body mass index (BMI) Body weight Respiratory rate Oxygen saturation Oxygen saturation in Arterial blood by Pulse oximetry Heart rate Systolic blood pressure Diastolic blood pressure Provider Name and Address Organization Details Last Updated DateTime 165.74 cm 27.2 kg/m2 21220.7 4 g 20 /min 99 % 99 % 72 /min 136 mm[Hg] 82 mm[Hg] Jaxon Zamorano MA [place] - [facility] 5 14:04:59 Date Recorded Systolic blood pressure Diastolic blood pressure Provider Name and Address Organization Details Last Updated DateTime 09/29/2024 140 mm[Hg] 80 mm[Hg] JONAS Bradley Attn: Accounting, [place], [address], [place] 09/29/2024 14:27:02 Social History Question Answer Notes LastModified by Organizat ion Details LastModified Time Tobacco Smoking Status Former Smoker quit Jaxon Zamorano MA null, [place] 10/02/2023 15:35:35 Do You Have An Advance Directive? No Information not available 09/29/2024 What Is Your Level Of Alcohol Consumption? None Information not available 10/02/2023 Are You Blind Or Do You Have Difficulty Seeing? No Information not available 09/29/2024 What Is Your Level Of Caffeine Consumption? Occasional Cofee In The Morninfg And Tea Information not available 10/02/2023 In The 14 Days Before Symptom Onset, Have You Had Close Contact With A Laboratory-[facility] COVID-19 While That Case Was Ill? No Information not available 10/02/2023 In The 14 Days Before Symptom Onset, Have You Had Close Contact With A Person Who Is Under Investigation For COVID-19 While That Person Was Ill? No Information not available 10/02/2023 Have You Been To An Area Known To Be High Risk For COVID-19? No Information not available 10/02/2023 Are You Currently Employed? Yes Information not available 09/29/2024 Are You Deaf Or Do You Have Serious Difficulty Hearing? No Information not available 09/29/2024 What Type Of Diet Are You Following? REGULAR Information not available 09/29/2024 Are There Any Guns Present In Your Home? No Information not available 10/02/2023 What Was The Date Of Your Most Recent Tobacco Screening? 09/29/2024 Information not available 09/29/2024 What Is Your Current Pack Years? 30ormorepacky [...] What Date Was Tobacco Cessation Counseling Provided? 09/29/2024 Information not available 09/29/2024 How Many Years Have You Smoked Tobacco? 38 Information not available 10/02/2023 Do You Or Have You Ever Used Any Other Forms Of Tobacco Or Nicotine? No Information not available 10/02/2023 Sex: Female Functional Status Question Answer Note LastModified by Organizat ion Details LastModified Time Are you able to care for yourself? Yes Information not available 09/29/2024 What is your exercise level? Occasional Information not available 09/29/2024 Mental Status None recorded. Family History Relationship Description Onset Age of this Age Resolved Age Notes LastModified by Organization Details LastModified Time Father Abnormal blood pressure tcarterma Not available 2023 15:36:44 Sister Asthma tcarterma Not available 10/02/2023 15:40:46 Sister Malignant tumor of breast tcarterma Not available 2023 15:40:59 Notes:High blood pressure- D ad Medical History Condition Response Coronary Artery Disease N Other N High Blood Pressure N Atrial Fibrillation N Kidney or Bladder Problems Y Thyroid Problems N COPD N Blood Clots N GI Problems N Skin Problems N Heart Attack ([place]) N Diabetes N Anxiety Disorder Y Muscle, [...] 0 Living 3 Ectopics 0 Total 3 Immunizations Vaccine Type Date Status Note Provider Nam e and Address Organization Details Recorded Time COVID-19, mRNA, LNP-S, PF, 30 mcg/0.3 mL dose 08/13/2020 completed VIVI [place], [place] [facility] 09/29/2024 14:02:11 COVID-19, mRNA, LNP-S, PF, 30 mcg/0.3 mL dose 07/23/2020 completed Jaxon Zamorano [place], [place] [facility] 09/29/2024 14:02:11 COVID-19, mRNA, LNP-S, PF, 30 mcg/0.3 mL dose 08/02/2021 completed Jaxon Zamor[place], [place] [facility] 09/29/2024 14:02:11 Influenza, split virus, trivalent, PF 08/08/2024 completed Jaxon Zamor[place], [place] [facility] 09/29/2024 14:05:19 Past Encounters Encounter ID Performer Location Encounter Start Date Encounter Closed Date Diagnosis/Indication Diagnosis SNOMED-CT Code Diagnosis ICD10 Code Diagnosis Note [id number] JONAS Bradley [facility] [address] [place] [address] 10/02/2023 15:24:22 10/02/2023 16:16:08 Adult health examination 427781901 Z00.01 new pt wellness completed. 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 she has tried and failed SSRI and SNRI as other options prior. Vitamin B1 2 deficiency (non anemic) 59854054 E53.8 pt is taking b12: 1000mcg daily tablet. Long-term drug therapy 135402930 Z79.899 labs were recently completed with previous PCP Swelling o f finger joint 070855274 M79.89 right index finger had an episode of acute swelling and discomfort , with no injury or precipitai ng cause. the swelling has nearly resolved. motion of the finger is near baseline. no gross infection present but will start empiric 100mg bid course. [id number] JONAS Bradley [employer] [facility] [address] [place] [address] 03/31/2024 14:27:05 03/31/2024 15:46:38 Generalized anxiety disorder 97009106 F41.1 pt has been on alprazolam 1mg qhs , intermediate use. 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 she has tried and failed SSRI and SNRI as other options prior. Refill needed on alprazolam 1 mg Vitamin B1 2 deficiency (non anemic) 41026404 E53.8 pt is taking b12: 1000mcg daily tablet. We will monitor vitamin B12 and folate on the next labs Long-term drug therapy 011736748 Z79.899 labs were recently completed with previous PCP and due in August 2024 Cholesterol screening 27 6255895 Z13.220 Fasting lipid panel is due again in August Diabetes m ellitus screening 418889278 Z13.1 Annual diabetes screen is ordered for August Weight gain 2763940 R63. 5 For reported weight gain we will check a thyroid function panel and fasting insulin Ex-smoker 8900743 Z87.89 1 Patient will be due for annual low-dose CT of the chest in August order is given now Body mass index 25-29 - overweight 865502649 Z68.26 BMI is 26.9 [id number] JONAS Bradley [employer] [facility] [address] [place] [address] 09/29/2024 13:55:37 09/29/2024 14:44:14 Body mass index 25-29 - overweight 375658078 Z68.26 BMI is 27.2 Overweight 597665204 E66 .3 discussed healthy diet, exercise, controllin g carbohydra rox and added sugars in the diet Generalize d anxiety disorder 96227893 F41.1 pt has been on alprazolam 1mg qhs , intermediate use. 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 she has tried and failed SSRI and SNRI as other options prior. Vitamin B1 2 deficiency (non anemic) 22407505 E53.8 b12 has been holding steady off supplement . Adult heal th examination 627418355 Z00.01 annual wellness completed Ex-smoker 4275566 Z87.89 1 LDCT UTD stable. complete yearly. 18 pounds gain in the last 2 years since stopping. Pulmonary emphysema 8743 3001 J43.9 Noted on low-dose CT scan Abdominal bloating 00743 9008 R14.0 Refer for ultrasound of the abdomen as well as pelvic and transvagin al Long-term drug therapy 955062074 Z79.899 labs were recently completed with previous PCP and due in August 2024 Health Concerns Section Related Observation LastModified by Organization Detai ls LastModified Time None Recorded Concern Status LastModified by Organization Details LastModified Time None Recorded Advance Directives Directive N: Payers Encounter Date Sequence Insurance Name Policy Number Policy Wilson Covered Member ID Wilson Member ID Guarantor Name 10/02/2023 1 [facility] [id number] Radha Del Rosario [id number] Radha Del Rosario 03/31/2024 1 [employer] [id number] Radha Ogara [id number] Radha Ogara 09/29/2024 1 R [id number] Radha Ogara [id number] Radha Ogara Notes Date Note Type Note Provider Name and Address Organization Details Recorded Time 10/02/2023 text/html Anxiety/Depressi o nReported bypatient.Notes:a nxiety for years. takes alprazolam 1mg qhs. has tried and failed SSRI and SNRI getting established. JONAS Bradley Attn: Accounting,[address] [place], [address], [place] [facility] 10/07/2023 20:36:08 03/31/2024 text/html Anxiety/Depressi o nReported bypatient.Notes:a nxiety for years. takes alprazolam 1mg qhs. has tried and failed SSRI and SNRI Ex-smoker patient will be in need of updated low-dose CT scan order B12 deficiency-angel dudley is taking monthly B12 injections and is stable. Patient reports weight gain recently despite any major dietary changes. She does feel that she has some room to improve the diet but she is interested in labs JONAS Bradley Attn: Accounting,[address] [facility], [place], [address], [facility] - [facility] 04/06/2024 20:20:44 09/29/2024 text/html Anxiety/Depressi o nReported bypatient.Notes:a nxiety for years. takes alprazolam 1mg qhs. has tried and failed SSRI and SNRI Ex-smoker ; patient had low-dose CT scan in August. Low-dose CT scan of the lung shows benign 3 mm nodule in the left lower lobe , they are also calcified right lung nodules and calcified right hilar lymph nodes consistent with old infection. Continue annual screening with a low-dose contrast in 12 months B12 deficiency-angel dudley is taking monthly B12 injections and is stable. JONAS Bradley Attn: Accounting,[address] [facility], [place], [address], [facility] - [facility] 10/07/2024 23:09:38 OBGyn Episode No OBEpisode recorded.
== END 2024-10-30 14:50 | disposition home or self-care (01) ==
PROVIDERS: PCP Physician Assistant; Visit Provider Physician Assistant
DX: R14.0 Abdominal distension (gaseous) (principal)
CPT/HCPCS: 76830; 76856

== ENCOUNTER 2024-10-31 07:24 | Outpatient (CLI) | payer OTHER, SELFPAY ==
--- NOTE | ~2024-10-31 | US_ITS ---
US abdomen complete EXAMINATION: US Abdomen Complete INDICATION: Abdominal distention PROCEDURE: Realtime High Resolution abdomen ultrasound. COMPARISON: No prior studies for comparison FINDINGS: There are multiple gallstones. Common bile duct measures 5 mm. Liver echotexture is increased, consistent with fatty infiltration. There is a 3.2 cm cyst in the lef t hepatic lobe.. Pancreas within normal limits. Pancreatic tail is obscured by bowel gas. Spleen i s unremarkeable. Renal echotexture is within normal limits bilaterally without hydronephrosis, contou r deforming mass or renal stone. Right kidney measures 9.4 cm. Left kidney measures 9.7 cm. Visualized aspects of the aorta and IVC are within normal limits. Portal vein is patent. No sonograph ic Alejo's sign indicated by the technologist. IMPRESSION: 1: Gallstones. 2: Cholelithiasis. Reviewed, dictated and finalized at location A.
--- OUTSIDE RECORDS SUMMARY | 2024-10-31 07:29 | XMS_ITS | Clinical Summary ---
Author Organization [facility] [employer] Address [address] [facility] [place] [address] Care Team Providers Care Director Digital Marketing Name Role Phone Shelton Gonzales MD Unavailable Unavailable Rigo Silva DO Primary Care Provider [phone] Source Comments [facility],non-owned Affiliates and Associated Physician Practices is amultiple site organization consisting of ambulatory clinics and hospital sitesin [place], [place], [place] and [place]. This disclosure is being madepursuant to the Care Everywhere program and may not contain all information available regarding this patient. Last updated 18.[facility] Allergies Active Allergy Reactions Criticality [...] age to complete this topic Care Teams Director Digital Marketing Relationship Specialty Start Date End Date Rigo Silva DO PCP - General Internal Medicine 04/14/22 Shelton Gonzales MD Family Medicine Physician Internal Medicine 05/24/20
== END 2024-10-31 07:25 | disposition home or self-care (01) ==
PROVIDERS: PCP Physician Assistant; Visit Provider Physician Assistant
DX: R14.0 Abdominal distension (gaseous) (principal); K80.20 Calculus of gallbladder without cholecystitis without obstruction
CPT/HCPCS: 76700

== ENCOUNTER 2024-12-19 13:07 | Outpatient (CLI) | payer OTHER, SELFPAY ==
--- NOTE | ~2024-12-19 | MM_ITS ---
EXAMINATION: MM screening saúl BI w velma HISTORY: Screening TECHNIQUE: Craniocaudal and mediolateral oblique 3-D tomosynthesis images were obtained and synthetic 2-D images were generated. CAD analysis was submitted and interpreted. COMPARISON: Comparison to multiple prior studies sequentially, with oldest reviewed study dated 09/2014. BREAST PARENCHYMAL COMPOSITION: Not dense: There are scattered areas of fibroglandular density. FINDINGS: There is no evidence of suspicious mass, calcification, or architectural distortion to sugg est malignancy in either breast. There has been no suspicious interval change. IMPRESSION: 1. No mammographic evidence of malignancy. 2. Recommend routine screening mammography in one year. BI-RADS Category 1: Negative Reviewed, dictated and finalized at location A.
--- OUTSIDE RECORDS SUMMARY | 2024-12-19 13:11 | XMS_ITS | Clinical Summary ---
Author Organization [facility] [employer] Address [address] [facility] [place] [address] Care Team Providers Care Mine Car Mechanic Name Role Phone Shelton Gonzales MD Unavailable Unavailable Rigo Silva DO Primary Care Provider [phone] Source Comments [facility],non-owned Affiliates and Associated Physician Practices is amultiple site organization consisting of ambulatory clinics and hospital sitesin [place], [place], [place] and [place]. This disclosure is being madepursuant to the Care Everywhere program and may not contain all information available regarding this patient. Last updated 18.[facility] [employer] Allergies Active Allergy Reactions Criticality Noted Date Comments Sulfa Drugs Urticaria Medium 03/14/2022 Breaks out in blisters Medications * Be aware that medications may not be up to date on this document. Alwaysverify current medications with the patient. ALPRAZolam (XANAX) 1 MG tablet 9 Active cyanocobalamin (VITAMIN B-12) injection INJ 1 ML IM ONCE A MONTH 0 Active B-D 3CC LUER-MARTHA SYR 25GX5/8 25G X 5/8 3 ML MISC USE DIRECTED WITH VITAMIN B12 INJECTION 0 Active neomycin-polymy maricruz-dexameth (MAXITROL) ophthalmic ointment Instill into both eyes at bedtime 3.5 g 0 Active Additional Information Patient not taking.Reported on 03/14/2022 Cyanocobalamin (Vitamin B12) 100 MCG Take by mouth once daily Active linaCLOtide (Linzess) 145 MCG capsuleIndicati ons:Constipatio n associated with Irritable Bowel Syndrome Take 1 (one) capsule by mouth daily before breakfast Take on an empty stomach at least 30 minutes prior to first meal of the day. Reasons: Constipation caused by Irritable Bowel Syndrome 30 capsule 2 Active Active Problems Problem Noted Date Diagnosed [...] = 0.6 oz pur e alcohol) occasionally Comments Unknown Sex and Gender Information Value Date Recorded Sex Assigned at Not on file Legal Sex Female 2:57 PM CDT Gender Identity Not on file Sexual Orientation [...] of 2) 2014 COVID-19 VACCINE (1 - 2024-2 5 season) 2024 DEPRESSION SCREENING 08/06/2024 INFLUENZA VACCINE (Season Ended) 2025 Respiratory Syncytial Virus (RSV) Vaccine Pt: or [...] on patient's age to complete this topic Insurance [address] [facility] [address] [facility] Care Teams Mine Car Mechanic Relationship Specialty Start Date End Date Yablonsky, Rigo B, DO PCP - General Internal Medicine 04/14/22 Shelton Gonzales MD Family Medicine Physician Internal Medicine 05/24/20
--- OUTSIDE RECORDS SUMMARY | 2024-12-19 13:11 | XMS_ITS | Data Portability ---
Author Organization [facility] Agnes Peterson Address [address] [place] [address] Care Team Providers Care Configuration Management Administrator Name Role Phone JAMIE DUARTE Primary Care [...] TSH + free T4, serum [address] [facility], [facility] [address], [address], 09/29/2024 18:05:35 insulin, serum 2023 025 [facility], [address] [place] [address], [address], 08/07/2024 09:03:15 lipid panel, serum [address] [facility], [address] [place] [address], [address], 09/29/2024 18:06:24 CMP, serum or plasma [address] [facility], [address] [place] [address], [address], 09/29/2024 18:05:56 CBC w/ auto diff [address] Lab, [address] [place] [address], [address], 09/29/2024 18:06:02 vitamin B12 + folate, serum or blood 2023 025 [facility], [address] [place] [address], [address], 08/07/2024 09:03:15 HbA1c (hemoglob in A1c), blood [address] [place] [address] Lab, [address] [place] [address], [address], 09/29/2024 18:04:51 Referral None recorded. Procedures None recorded. Surgeries None recorded. Imaging US, abdomen [address] [place] [address] (Imaging), [address] [place] [address], [phone], 11/05/2024 13:06:07 US, pelvis, transabdo jimmy + transvagi nal [address] [place] [address] (Imaging), [address] [place] [address], [phone], 10/30/2024 18:37:57 LDCT, chest, for lung cancer screening - Authoriza tion not requiredN o pre-certi fication is required for this order 2023 024 [facility] ([facility]), [address], [place], [address], 09/06/2024 11:53:40 Medication Orders alprazola m 1 mg tablet 2023 024 [facility]/Pharmacy #[id number], [address], [place], [address], 09/29/2024 14:01:30 doxycycli ne hyclate 100 mg capsule 2023 024 [facility]/Pharmacy #[id number], [address], [place], [address], 03/31/2024 14:36:27 alprazola m 1 mg tablet 2023 024 [id number], [address], [place], [address], 10/02/2023 15:56:45 Patient TargetsNo targets recorded. Patient Instructions Encounter Date Encounter Id Patient Instructions Last Modified By Organization Details Last Modified Time 09/29/2024 [id number] A healthy lifestyle: care instructions [place] [id number] Not available 09/29/2024 14:19:41 Reason for Referral None Reported. Results Created Date Observation Date Name Description Value Unit Range Abnormal Flag Note LastModifiedBy Organization Detail LastModifiedTime 04/02/2008/08/2023 MAMMO , scree manfred, digit al, bilat eral No observ ation record ed. [facility] [address], [place], [address], 04/06/2024 20:18:17 09/06/19 25 09/05/2024 LDCT, chest , for lung cance r simone shearer No observ ation record ed. [facility] [place] [id number] [facility] [address], [place], [address], 09/29/2024 14:18:57 10/31/19 25 10/30/2024 US, pelvi s, trans abdom inal + trans vagin al No observ ation record ed. [place] [id number] [facility] [address], [place], [address], 11/05/2024 17:54:22 11/01/19 25 10/31/2024 US, abdom en, compl ete No observ ation record ed. [facility] (Imaging) [address] [facility] [address], [place], [address], 11/05/2024 17:55:22 Result Notes None recorded. Problems Name Problem SNOMED Code Status Onset Date Resolution Date Notes Provider Name and Address Organization Details Recorded Time Body mass index 25-29 - overweight 213080675 Active 2023 JONAS Bradley Attn: Accountin g,[address] [facility], [place], [address], [facility] 4 20:18:37 Ex-smoker 7938966 Active 2023 JONAS Bradley Attn: Accountin g,[address] [facility], [place], [address], [facility] - [facility] 4 20:18:56 Generalized anxiety disorder 65214886 Active 2023 JONAS Bradley Attn: Accountin g,[address] [facility], [place], [address], [facility] - [facility] 4 20:19:31 Vitamin B12 deficiency (non anemic) 65056608 Active 2023 JONAS Bradley Attn: Accountin g,[address] [facility], [place], [address], [facility] - [facility] 4 20:19:32 Cholesterol screening Active 2023 JONAS Bradley Attn: Accountin g,[address] [facility], [place], [address], [facility] - [facility] 4 20:19:34 Overweight 537719266 Active 2024 JONAS Bradley Attn: Accountin g,[address] [facility], [place], [address], [facility] - [facility] 14:19:35 Pulmonary emphysema 71545125 Active 2024 JONAS Bradley Attn: Accountin g,[address] [facility], [place], [address], [facility] - [facility] 5 14:29:02 Abdominal bloating 758479059 Active 2024 JONAS Bradley Attn: Accountin g,[address] [facility], [place], [address], [facility] - [facility] 23:08:44 Long-term drug therapy Active 2024 JONAS Bradley Attn: Accountin g,[address] [facility], [place], [address], [facility] - [facility] 23:09:01 Problem Notes None recorded. Procedures Surgical History Date Name Laterality Status Provider Name and Address Organization Details Recorded Time section completed Jaxon Zamorano MA [facility] 10/02/2023 15:40:09 Imaging Results Imaging Date Name Status LastModified by Organization Details LastModified Time 08/08/2023 MAMMO, screening, digital, bilateral completed [address], [address], 04/06/2024 20:18:17 09/05/2024 LDCT, chest, for lung cancer screening completed [address], [address], 09/29/2024 14:18:57 10/30/2024 US, pelvis, transabdominal + transvaginal completed [address], [address], 11/05/2024 17:54:22 10/31/2024 US, abdomen, complete completed [facility] ([facility]) [address], [place], [address], 11/05/2024 17:55:22 Procedure Notes None recorded. Medical Equipment None Reported. Allergies Allergen ID Allergen Name Allergen Category Reaction Reaction Severity Criticality Documentation Date Start Date Code Code System Note Provider Name and Address Organization Details Recorded Time 401114 Substance with sulfonami de structure and antibacte rial mechanism of action (substanc e) medicatio n Not available Not available Not available 10/02/2023 03625 8003 SNOMED Jaxon Zamorano MA null, [place] - [facility] 15:31:52 Medications Name Sig Start Date Stop Date [...] Not Available Not Available Not Available cyanocobal antione (vit B-12) 1,000 mcg tablet Take 1 [...] Address Organization Details Last Updated DateTime 4 [address].0 4 g 86 /min 18 /min 99.2 [degF] 95 % 95 % 25.1 kg/m2 165.74 cm 119 mm[Hg] 80 mm[Hg] Jaxon Zamorano MA [facility] 4 15:31:18 Date Recorded Systolic blood pressure Diastolic blood pressure Provider Name and Address Organization Details Last Updated DateTime 10/02/2023 126 mm[Hg] 80 mm[Hg] JONAS Bradley Attn: Accounting,[address] [place], [address], [facility] 10/02/2023 16:07:05 Date Recorded Body height Body mass index (BMI) Body weight Oxygen saturation Oxygen saturation in Arterial blood by Pulse oximetry Heart rate Systolic blood pressure Diastolic blood pressure Provider Name and Address Organization Details Last Updated DateTime 4 165.74 cm 26.9 kg/m2 73603.5 6 g 97 % 97 % 90 /min 130 mm[Hg] 86 mm[Hg] Kwadwo Aviles MA [facility] 4 14:38:39 Date Recorded Systolic blood pressure Diastolic blood pressure Systolic blood pressure Diastolic blood pressure Provider Name and Address Organization Details Last Updated DateTime 03/31/2024 140 mm[Hg] 80 mm[Hg] 130 mm[Hg] 80 mm[Hg] JONAS Bradley Attn: Accounting ,[address] [place], [address] , [facility] 4 15:10:11 Date Recorded Body height Body mass index (BMI) Body weight Respiratory rate Oxygen saturation Oxygen saturation in Arterial blood by Pulse oximetry Heart rate Systolic blood pressure Diastolic blood pressure Provider Name and Address Organization Details Last Updated DateTime 5 165.74 cm 27.2 kg/m2 32731.7 4 g 20 /min 99 % 99 % 72 /min 136 mm[Hg] 82 mm[Hg] Jaxon Zamorano MA [facility] 5 14:04:59 Date Recorded Systolic blood pressure Diastolic blood pressure Provider Name and Address Organization Details Last Updated DateTime 09/29/2024 140 mm[Hg] 80 mm[Hg] JONAS Bradley Attn: Accounting,[address] [facility], [place], [address], [facility] 09/29/2024 14:27:02 Social History Question Answer Notes LastModified by Organizat ion Details LastModified Time Tobacco Smoking Status Former Smoker quit Jaxon Zamorano MA [facility], [facility] 10/02/2023 15:35:35 Do You Have An Advance Directive? No Information not available 09/29/2024 Are You Blind Or Do You Have [...] No Information not available 10/02/2023 Are You Deaf Or Do You Have [...] Smoked Tobacco? 38 Information not available 10/02/2023 Sex: Female Functional Status Question Answer Note LastModified by Organizat ion Details LastModified Time Do you use any illicit or recreational drugs? No Information not available 10/02/2023 Do you or have you ever used any other forms of tobacco or nicotine? No Information not available 10/02/2023 What is your level of alcohol consumption? None Information not available 10/02/2023 Are you currently employed? Yes Information not available 09/29/2024 Are you able to care for yourself? Yes Information n ot available 09/29/2024 What is your exercise level? [...] Problems N Skin Problems N Heart Attack (AR) N Diabetes N Anxiety Disorder Y Muscle, [...] PF, 30 mcg/0.3 mL dose 07/23/2020 completed VIVI [place], [place] [facility] 09/29/2024 14:02:11 COVID-19, mRNA, LNP-S, PF, 30 mcg/0.3 mL dose 08/02/2021 completed [place] [facility] 09/29/2024 14:02:11 Influenza, split virus, trivalent, PF 08/08/2024 completed [place] [facility] 09/29/2024 14:05:19 Past Encounters Encounter ID Performer Location Encounter Start Date Encounter Closed Date Diagnosis/Indication Diagnosis SNOMED-CT Code Diagnosis ICD10 Code Diagnosis Note [id number] Franco Bates MD [facility] [address] [place] [address] 10/02/2023 15:24:22 10/02/2023 16:16:08 Adult health examination 109283077 Z00.01 new pt wellness completed. Generalize d anxiety disorder 57681452 F41.1 pt has been on alprazolam 1mg qhs , half-way use. 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 she has tried and failed SSRI and SNRI as other options prior. Vitamin B1 2 deficiency (non anemic) 84010923 E53.8 pt is taking b12: 1000mcg daily tablet. Long-term drug therapy 508287447 Z79.899 labs were recently completed with previous PCP Swelling o f finger joint 569187894 M79.89 right index finger had an episode of acute swelling and discomfort , with no injury or precipitai ng cause. the swelling has nearly resolved. motion of the finger is near baseline. no gross infection present but will start empiric 100mg bid course. 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 she has tried and failed SSRI and SNRI as other options prior. Refill needed on alprazolam 1 mg Vitamin B1 2 deficiency (non anemic) 23854583 E53.8 pt is taking b12: 1000mcg daily tablet. We will monitor vitamin B12 and folate on the next labs Long-term drug therapy 229572167 Z79.899 labs were recently completed with previous PCP and due in August 2024 Cholesterol screening 27 3557394 Z13.220 Fasting lipid panel is due again in August Diabetes m ellitus screening 400450009 Z13.1 Annual diabetes screen is ordered for August Weight gain 4876260 R63. 5 For reported weight gain we will check a thyroid function panel and fasting insulin Ex-smoker 2153503 Z87.89 1 Patient will be due for annual low-dose CT of the chest in August order is given now Body mass index 25-29 - overweight 601845125 Z68.26 BMI is 26.9 [id number] Franco Bates MD [facility] [address] [place] [address] 09/29/2024 13:55:37 09/29/2024 14:44:14 Body mass index 25-29 - overweight 291806817 Z68.26 BMI is 27.2 Overweight 321711069 E66 .3 discussed healthy diet, exercise, controllin g carbohydra rox and added sugars in the diet Generalize d anxiety disorder 62413604 F41.1 pt has been on alprazolam 1mg qhs , half-way use. 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 she has tried and failed SSRI and SNRI as other options prior. Vitamin B1 2 deficiency (non anemic) 63918130 E53.8 b12 has been holding steady off supplement . Adult heal th examination 134656877 Z00.01 annual wellness completed Ex-smoker 4211303 Z87.89 1 LDCT UTD stable. complete yearly. 18 pounds gain in the last 2 years since stopping. Pulmonary emphysema 8743 3001 J43.9 Noted on low-dose CT scan Abdominal bloating 03409 9008 R14.0 Refer for ultrasound of the abdomen as well as pelvic and transvagin al Long-term drug therapy 438755078 Z79.899 labs were recently completed with previous PCP and due in August 2024 Health Concerns Section Related Observation LastModified by Organization Detai ls LastModified Time None Recorded Concern Status LastModified by Organization Details LastModified Time None Recorded Advance Directives Directive N: Payers Encounter Date Sequence Insurance Name Policy Number Policy Wilson Covered Member ID Wilson Member ID Guarantor Name 10/02/2023 1 [facility] [id number] Radha Ogara [id number] Radha Ogara 03/31/2024 1 [facility] [id number] Radha Ogara [id number] Radha Ogara 09/29/2024 1 [facility] [id number] Radha Ogara [id number] Radha Ogara Notes Date Note Type Note Provider Name and Address Organization Details Recorded Time 10/02/2023 text/html Anxiety/Depressi o nReported bypatient.Notes:a nxiety for years. takes alprazolam 1mg qhs. has tried and failed SSRI and SNRI getting established. JONAS Bradley Attn: Accounting,[address] [place], [address], [facility] 10/07/2023 20:36:08 03/31/2024 text/html Anxiety/Depressi o nReported [...] interested in labs JONAS Bradley Attn: Accounting,[address] [place], [address], [facility] 04/06/2024 20:20:44 09/29/2024 text/html Anxiety/Depressi o nReported [...] a low-dose contrast in 12 months B12 deficiency-patien t is taking monthly B12 injections and is stable. JONAS Bradley Attn: Accounting,[address] [place], [address], [facility] 10/07/2024 23:09:38 OBGyn Episode No OBEpisode recorded.
== END 2024-12-19 13:08 | disposition home or self-care (01) ==
LOC: ANHIMG 13:09
PROVIDERS: PCP Physician Assistant; Visit Provider Obstetrics & Gynecology
DX: Z12.31 Encounter for screening mammogram for malignant neoplasm of breast (principal)
CPT/HCPCS: 77063; 77067

== ENCOUNTER 2025-01-29 11:34 | Outpatient (CLI) | payer OTHER, SELFPAY ==
--- NOTE | ~2025-01-29 | DEXA_ITS ---
Bone Density Report Name: RICARDO WANG Age: 59 Sex: Female Ethnicity: White Date of : 1965 Indication: postmenopausal; screening for osteoporosis; inflammatory bowel disease; Referring Provider: FELICIA, JAMIE Study: Bone densitometry was performed. Exam Date: January 29, 2025 Accession number: [id number] Bone Density: Region BMD T-score Z-score Classification AP Spine(L1-L4) 1.075 0.3 1.7 Normal Femoral Neck (Left) 0.821 -0.3 1.1 Normal Total Hip (Left) 0.958 0.1 1.1 Normal Femoral Neck (Right) 0.839 -0.1 1.2 Normal Total Hip (Right) 0.956 0.1 1.1 Normal Total Hip Mean 0.957 0.1 1.1 Normal World Health Organization criteria for BMD impression classify patients as: Normal (T-score at or above -1.0), Osteopenia (T-score between -1.0 and -2.5), or Osteoporosis (T-score at or below -2.5). 10-year Fracture Risk: FRAX not reported because: All T-scores for Spine Total, Hip Total, Femoral Neck at or above -1.0 Clinical Information Provided by Patient: Has the following medical conditions: Inflammatory bowel diseases Patient maximum height was 62 Menopause Age: 52 No regular weight bearing exercise Drinks caffeinated beverages Onset of menses at age 15 Number of children 3 Impression: The patient has normal bone mass. Discussion: BONE DENSITY IS ABOVE THE MINIMUM DESIRABLE LEVEL AT ALL SKELETAL SITES TESTED. This patient?s bone mineral density is above the minimum desirable level (T-score -1.0 or better) at all sites measured. The patient should follow a healthful lifestyle (good nutrition with adequate calcium and vitamin D, and appropriate weight-bearing exercise). Follow-Up: Consider repeating this study in 5 years or sooner if there is some new clinical indication. Reported by: GUILLAUME on 01/29/2025 12:11:00 PM. Reviewed, dictated and finalized at location A.
== END 2025-01-29 11:35 | disposition home or self-care (01) ==
LOC: ANHIMG 11:35
PROVIDERS: PCP Physician Assistant; Visit Provider Physician Assistant
DX: Z78.0 Asymptomatic menopausal state (principal)
CPT/HCPCS: 77080